=== PATIENT | female | born 1955 | race Caucasian/White ===

== ENCOUNTER → 2017-01-17 | Outpatient (CLI) | payer OTHER ==
[~2017-01-17] MED LIST: DIATRIZOATE MEGLUM/DIATRIZOATE SOD 120 ML BTL (for RAD DIAG) RECTAL ONE
--- NOTE | 2017-01-17 13:42 | RADRPT ---
EXAM DATE/TIME: 01/17/2017 11:25 [facility] COMPARISON: No previous studies available for comparison. INDICATIONS : Rectal abscess ORAL CONTRAST: No oral contrast ingested. RADIATION DOSE: 14.37 CTDIvol (mGy) MEDICAL HISTORY : None SURGICAL HISTORY : None. ENCOUNTER: Initial ACUITY: 1 day PAIN SCALE: 0/10 LOCATION: Pelvis TECHNIQUE: Volumetric scanning of the pelvis was performed. Using automated exposure control and adjustment of the mA and/or kV according to patient size, radiation dose was kept as low as reasonably achievable t o obtain optimal diagnostic quality images. FINDINGS/ CONCLUSION: CT scan was performed after a fistulagram. 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 Gabriel Ng MD FACR on January 17, 2017 at 13:34 Board Certified Radiologist. This report was verified electronically.
--- NOTE | 2017-01-17 13:47 | RADRPT ---
EXAM DATE/TIME: 01/17/2017 11:16 [facility] COMPARISON: No previous studies available for comparison. INDICATIONS : Fistula FLUORO TIME: 0.1 minutes IMAGE COUNT: 5 MEDICAL HISTORY : Abscess next to rectum since 2015, colitis SURGICAL HISTORY : Colonoscopy 1 week ago ENCOUNTER: Initial ACUITY: 4 - 6 months PAIN SCORE: 0/10 LOCATION: Bilateral abdomen FINDINGS: Small fistula in the perineum was cannulated. Contrast was carefully injection into this fistula und er direct fluoroscopic visualization. There is rapid and free flow of contrast through several small fistula tracts into the sigmoid colon. CT scan is pending. 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 Gabriel Ng MD FACR on January 17, 2017 at 13:37 Board Certified Radiologist. This report was verified electronically.
== END ==
LOC: HRAD 10:30
PROVIDERS: ATTEND Colon & Rectal Surgery
DX: K60.3 Anal fistula (principal)
CPT/HCPCS: 72192; 76080; Q9963